=== PATIENT | female | born 1960 | race Caucasian/White ===

== ENCOUNTER 2017-11-25 07:07 | Day surgery (SDC) | payer OTHER, SELFPAY ==
[~2017-11-25] VITALS: Ht 149.9 cm; Wt 54.2 kg
[~2017-11-25 07:07] MED LIST: ARMOUR THYROID; BUPR150T2; BUSPIRONE HCL; GUAN1; Omeprazole20 M1
[2017-11-25] MEDS ORDERED: OMEPRAZOLE MAGN20 MG (07:59)
[2017-11-25] MEDS ORDERED: CITA10S (08:00)
[2017-11-25] MEDS ORDERED: ZIPR20 (08:00)
[2017-11-25] MEDS ORDERED: DOXE10 (08:00)
[2017-11-25] MEDS ORDERED: CLON.5 (08:00)
== END 2017-11-25 09:09 | disposition home or self-care (01) ==
LOC: ORSCSDS 07:07
PROVIDERS: Internal Medicine Gastroenterology
PROC: 0DB68ZX Excision of Stomach, Via Natural or Artificial Opening Endoscopic, Diagnostic (ICD-10-PCS; principal; 2017-11-25 08:30)
DX: K21.9 Gastro-esophageal reflux disease without esophagitis (principal); K29.70 Gastritis, unspecified, without bleeding; K20.9 Esophagitis, unspecified; F17.210 Nicotine dependence, cigarettes, uncomplicated; Z79.899 Other long term (current) drug therapy
CPT/HCPCS: 88305; 88342; J0330; J1980; J2405

== ENCOUNTER → 2019-06-30 | Outpatient (CLI) | payer OTHER ==
[~2019-06-30] MED LIST changes: +CITA10S; +CLON.5; +DOXE10; +OMEPRAZOLE MAGN20 MG; +ZIPR20
== END | disposition home or self-care (01) ==
LOC: LAB EV 15:35 → LAB SHORT 15:35
DX: S41.112A Laceration without foreign body of left upper arm, initial encounter (principal)
CPT/HCPCS: 87070; 87075; 87205

== ENCOUNTER 2021-01-04 09:35 | Emergency (ER) | payer OTHER ==
[~2021-01-04] VITALS: Ht 165.1 cm; Wt 72.6 kg
[2021-01-04] MEDS ORDERED: BUPROPION XL150 M1 PO (11:21)
[2021-01-04] MEDS ORDERED: CLONAZEPAM1 MG PO (11:22)
[2021-01-04] MEDS ORDERED: ZIPRASIDONE HCL PO (11:23)
[2021-01-04] MEDS ORDERED: DOXEPIN HCL100 M1 PO (11:24)
[2021-01-04] MEDS ORDERED: ZANAFLEX4 M4 PO (11:24)
[2021-01-04] MEDS ORDERED: ESCI10 PO (11:24)
[2021-01-04] MEDS ORDERED: OMEP20ER PO (11:25)
[2021-01-04] MEDS ORDERED: CLON1 PO (11:40)
[2021-01-04] MEDS ORDERED: ESCI20 PO (13:28)
== END 2021-01-04 13:51 | disposition home or self-care (01) ==
LOC: ER 09:35
DX: F32.9 Major depressive disorder, single episode, unspecified (principal); F17.200 Nicotine dependence, unspecified, uncomplicated; Z79.899 Other long term (current) drug therapy
CPT/HCPCS: 99284; Q3014

== ENCOUNTER 2021-01-25 10:01 | Observation (INO) | payer OTHER ==
[~2021-01-25] VITALS: Ht 149.9 cm; Wt 68.0 kg
[~2021-01-25 10:01] MED LIST changes: +BUPROPION XL150 M1 PO; +CLON1 PO; +CLONAZEPAM1 MG PO; +DOXEPIN HCL100 M1 PO; +ESCI10 PO; +ESCI20 PO; +OMEP20ER PO; +ZANAFLEX4 M4 PO; +ZIPRASIDONE HCL PO
[2021-01-25 10:48] LABS: Source, Urine Voided
[2021-01-25 10:54] LABS: BASOPHILS ABSOLUTE AUTO 0.04 K/mm3 (0.00-0.23); BASOPHILS PERCENT AUTO 1 % (0-2); EOSINOPHILS ABSOLUTE AUTO 0.16 K/mm3 (0.00-0.68); EOSINOPHILS PERCENT AUTO 2 % (0-6); Hematocrit 42.9 % (33.0-51.0); Hemoglobin 13.8 g/dL (11.5-16.0); IMMATURE GRAN ABSOLUTE AUTO 0.03 K/mm3 (0.00-0.10); IMMATURE GRAN PERCENT AUTO 0 % (0-1); LYMPHOCYTES ABSOLUTE AUTO 2.67 K/mm3 (0.84-5.20); LYMPHOCYTES PERCENT AUTO 34 % (21-46); MONOCYTES ABSOLUTE AUTO 0.43 K/mm3 (0.16-1.47); MONOCYTES PERCENT AUTO 6 % (4-13); Mean Corpuscular HGB 29.7 pg (26.0-34.0); Mean Corpuscular HGB Conc 32.2 g/dL (31.5-36.5); Mean Corpuscular Volume 93 fL (80-100); Mean Platelet Volume 9.4 fL (9.1-12.4); NEUTROPHILS ABSOLUTE AUTO 4.55 K/mm3 (1.96-9.15); NEUTROPHILS PERCENT AUTO 58 % (41-73); Platelet Count 238 K/mm3 (150-400); RDW Coefficient Variation 13.8 % (11.7-14.2); RDW Standard Deviation 46.7 fL (35.1-46.3); Red Blood Cell Count 4.64 M/mm3 (3.80-5.20); White Blood Cell Count 7.88 K/mm3 (4.00-11.30)
[2021-01-25 10:55] LABS: Bilirubin, Urine Neg (Neg); Blood, Urine Neg (Neg); Glucose Qualitative, Urine Neg (Neg); Ketones, Urine Neg (Neg); Leukocyte Esterase, Urine 1+ (Neg); Nitrite, Urine Neg (Neg); Protein, Urine Neg (Neg); Urobilinogen, Urine NORM (Normal)
[2021-01-25 11:13] LABS: U Amphetamine Screen Not Detected; U Barbituate Screen Not Detected; U Benzodiazapine Screen Not Detected; U Buprenorphine Screen Not Detected; U Cannabinoids Screen Not Detected; U Cocaine Screen Not Detected; U Methadone Screen Not Detected; U Methamphetamine Screen Not Detected; U Opiates Screen Not Detected; U Oxycodone Screen Not Detected; U Phencyclidine Screen Not Detected; U Propoxyphene Screen Not Detected
[2021-01-25 11:15] LABS: Ethanol (Alcohol), Blood, Med <3 mg/dL; Salicylate 4.2 mg/dL (2.8-20.0)
[2021-01-25 11:16] LABS: Alanine Aminotransfer (ALT/SGP 10 U/L (12-78); Albumin, Blood 3.8 g/dL (3.4-5.0); Alk Phos 86 U/L (50-136); Anion Gap 6 mmol/L (6-16); Aspartate Aminotrans (AST/SGOT 14 U/L (12-37); Bilirubin, Total 0.4 mg/dL (0.1-1.0); Blood Urea Nitrogen 11 mg/dL (8-24); Bun/Creatinine Ratio 14.2 (12.0-20.0); CO2, Blood 26 mmol/L (21-32); Calcium, Blood 9.1 mg/dL (8.5-10.1); Chloride, Blood 107 mmol/L (98-108); Creatinine, Blood 0.78 mg/dL (0.40-1.00); Globulin, Blood 3.8 g/dL (2.2-4.0); Glomerular Filtration Rate >60 (60-); Glucose, Blood 101 mg/dL (70-99); Sodium, Blood 139 mmol/L (136-145); Total Protein, Blood 7.6 g/dL (6.4-8.2)
[2021-01-25 11:16] LABS: Appearance, Urine Clear (Clear); Color, Urine Yellow (P-Yellow)
[2021-01-25 11:18] LABS: Bacteria Not Seen /hpf; Red Blood Cells, Urine 0-2 /hpf (0-2); Squamous Epithelial Cells Rare /hpf (Few); Transitional Epithelial Cells Rare /hpf (0-Rare); White Blood Cells, Urine 0-2 /hpf (0-5)
[2021-01-25 11:29] LABS: Acetaminophen, Random <2.0 ug/mL (10.0-30.0)
[2021-01-25] MEDS ORDERED: Norco 5-325 Ta1 EACH PO (12:15)
[2021-01-25] MEDS ORDERED: Armour Thyroid15 MG PO (12:15)
[2021-01-25] MEDS ORDERED: ESCI20 PO (16:13)
[2021-01-25 17:14] LABS: Influenza A, PCR NEGATIVE (NEGATIVE); Influenza B, PCR NEGATIVE (NEGATIVE); Resp Syncytial Virus, PCR NEGATIVE (NEGATIVE); SARS-Cov-2 (COVID-19) PCR, MMC NEGATIVE (NEGATIVE)
== END 2021-01-26 15:00 | disposition home or self-care (01) ==
LOC: ER 10:01 → EOR 10:02
PROVIDERS: ADMIT Emergency Medicine
DX: F60.3 Borderline personality disorder (principal); F39 Unspecified mood [affective] disorder; R45.851 Suicidal ideations; F17.210 Nicotine dependence, cigarettes, uncomplicated; Z20.822 Contact with and (suspected) exposure to COVID-19
CPT/HCPCS: 0241U; 80053; 81001; 81025; 85025; 87086; 99285; A9270; G0378; G0480; Q3014

== ENCOUNTER → 2022-01-30 | Outpatient (CLI) | payer OTHER ==
[~2022-01-30] MED LIST changes: +Armour Thyroid15 MG PO; +Norco 5-325 Ta1 EACH PO
== END ==
LOC: LAB SHORT 17:10
DX: R06.02 Shortness of breath (principal)
CPT/HCPCS: 84484; 85379

== ENCOUNTER → 2023-11-03 | Outpatient (CLI) | payer OTHER ==
[~2023-11-03] MED LIST changes: +ALBU90OI INH; +Nicoderm Cq1 EAC1 TOP; +PRED20 PO
== END ==
LOC: LAB SHORT 07:48 → PLD 07:48
DX: L57.0 Actinic keratosis (principal)
CPT/HCPCS: 88305